=== PATIENT | female | born 1970 ===

== ENCOUNTER 2021-12-09 12:20 | Outpatient (REF) | payer OTHER, SELFPAY ==
[2021-12-09 13:22] LABS: MANUAL DIFF FLAG NO
[2021-12-09 13:25] LABS: Basophils Absolute Auto 0.1 X10*3/uL (0.0-0.2); Eosinophils Percent Auto 0.6 % (0-4); Hematocrit 43.3 % (37.0-47.0); Hemoglobin 14.8 g/dl (12.0-16.0); Imm Gran Abs Auto 0.01 X10*3/uL (0.00-0.03); Imm Gran Pct Auto 0.2 % (0.0-0.4); Lymphocytes Absolute Auto 1.8 X10*3/uL (1.2-4.9); Lymphocytes Percent Auto 36.1 % (20-40); Mean Corpuscular HGB Conc 34.2 g/dl (31.0-35.0); Mean Corpuscular Hemoglobin 31.9 pg (27.0-33.0); Mean Corpuscular Volume 93.3 fL (80.0-98.0); Mean Platelet Volume 10.7 fL (9.4-12.3); Monocytes Absolute Auto 0.6 X10*3/uL (0.1-1.2); Monocytes Percent Auto 10.9 % (2-11); Neutrophils Absolute Auto 2.6 x10*3/uL (2.0-8.3); Neutrophils Percent Auto 51.2 % (45-73); Platelet Count 338 X10*3/uL (160-400); Red Blood Count 4.64 X10*6/uL (4.20-5.50); Red Cell Distribution Width 11.7 % (11.0-16.0)
[2021-12-09 13:41] LABS: Alanine Aminotransferase 27 U/L (0-31); Alkaline Phosphatase 69 U/L (39-117); Aspartate Amino Transferase 29 U/L (5-31); Bilirubin Direct 0.3 mg/dL (0.0-0.5); Bilirubin Total 0.7 mg/dL (0.0-1.0); Iron 155 mcg/dL (30-160); Lipase 51 U/L (8-78); Percent Iron Saturation 50 % (15-50); Total Iron Binding Capacity 312 mcg/dL (228-428); Unsaturated Iron Binding 157 ug/dL
[2021-12-09 13:54] LABS: Ferritin 326 ng/mL (10-250)
[2021-12-09 14:10] LABS: Vitamin B12 559 pg/mL (200-900)
== END 2021-12-09 12:21 | disposition home or self-care (01) ==
LOC: HO.10HDL 12:20
PROVIDERS: Visit Provider Internal Medicine Gastroenterology
DX: Z13.818 Encounter for screening for other digestive system disorders (principal)
CPT/HCPCS: 36415; 80076; 82306; 82607; 82728; 83540; 83690; 85025

== ENCOUNTER 2022-01-07 08:55 | Day surgery (SDC) | payer OTHER, SELFPAY ==
[2022-01-06 11:24] VITALS: BMI 18.3
--- NOTE | 2022-01-06 11:59 | P.CONAN_ITS ---
HPI - Anesthesia Eval Consult details Narrative: 51yo F for Upper Endoscopy and Colonoscopy [facility] Past Medical History Medical History (Updated 01/06/22 @ 11:20 by Angela Gill, RN) Allergic rhinitis Celiac disease GERD (gastroesophageal reflux disease) Mood disorder Ocular rosacea Surgical History Surgical History (Updated 01/06/22 @ 11:21 by Angela Gill, RN) Hx of appendectomy Hx of breast augmentation Social History Social History Patient Tobacco Use Status: Never used Tobacco Use of substances other than those prescribed or required for medical reasons: No Substance Use Frequency: Daily Are you DNR?: No Advance Directives: No Advance Directives Information Provided: Yes Meds Allergies Allergy/AdvReac Type Severity Reaction Status Date / Time Sulfa (Sulfonamide Allergy Unknown Verified 01/06/22 11:22 Antibiotics) sulfamethoxazole Allergy Unknown Verified 01/06/22 11:22 [From Bactrim] trimethoprim [From Bactrim] Allergy Unknown Verified 01/06/22 11:22 Home Medications Medication Instructions Recorded Confirmed Last Taken Type albuterol sulfate 90 mcg/actuation 2 puff PO Q4H PRN 01/06/22 01/06/22 Unknown History aerosol inhaler (ProAir HFA) cyclosporine 0.09 % eye drops in a 1 drp OPHTHALMIC (EYE) BID 01/06/22 01/06/22 Unknown History dropperette (Cequa) famotidine 20 mg tablet 1 tab PO BEDTIME PRN 01/06/22 01/06/22 Unknown History fluticasone propionate 50 1 spray INTRANASAL BID 01/06/22 01/06/22 Unknown History mcg/actuation nasal spray,suspension lifitegrast 5 % eye drops in a 1 drp OPHTHALMIC (EYE) BID 01/06/22 01/06/22 Unknown History dropperette (Xiidra) loteprednol etabonate 0.5 % eye 1 drp OPHTHALMIC (EYE) BID 01/06/22 01/06/22 Unknown History gel drops metronidazole 0.75 % topical cream appl TOPICAL BID 01/06/22 01/06/22 Unknown History Exam Exam Date and Time: January 06, 2022 1159 Height,Weight and Vital Signs: Height 5 ft 4 in Weight 48.534 kg Pertinent Lab Results Pertinent Lab Results: Laboratory Tests 12/09/21 12:30 WBC 5.0 Hgb 14.8 Hct 43.3 Plt Count 338 Assessment and Plan Assessment Anesthesia Assessment: Chart Reviewed
[2022-01-07 09:08] VITALS: BP 103/63; PULSE 76; RESP 18; TEMP 36.9; O2SAT 99
--- NOTE | 2022-01-07 09:20 | ECG_ITS ---
Test Reason : arrhythmia Blood Pressure : / mmHG Vent. Rate : 062 BPM Atrial Rate : 062 BPM P-R Int : 132 ms QRS Dur : 080 ms QT Int : 422 ms P-R-T Axes : 086 033 043 degrees QTc Int : 428 ms Normal sinus rhythm with sinus arrhythmia Normal ECG No previous ECGs available Referred By: Nathalie Weber Electronically Signed By:KAI MENDIOLA MD
[2022-01-07] MEDS: Lactated Ringers 1,000 ML 100 ML IVCONT (09:28)
--- NOTE | 2022-01-07 09:29 | HO.ANESPROP2 ---
[facility] Past Medical History Medical History (Updated 01/06/22 @ 11:20 by Angela Gill RN) Allergic rhinitis Celiac disease GERD (gastroesophageal reflux disease) Mood disorder Ocular rosacea Family History Family history of problems with anesthesia: No Surgical History Surgical History (Updated 01/06/22 @ 11:21 by Angela Gill RN) Hx of appendectomy Hx of breast augmentation History of Problems with Anesthesia: No Social History Social History Patient Tobacco Use Status: Never used Tobacco Use of substances other than those prescribed or required for medical reasons: No Substance Use Frequency: Daily Are you DNR?: No Advance Directives: No Advance Directives Information Provided: Yes Meds Allergies Allergy/AdvReac Type Severity Reaction Status Date / Time Sulfa (Sulfonamide Allergy Unknown Verified 01/06/22 11:22 Antibiotics) sulfamethoxazole Allergy Unknown Verified 01/06/22 11:22 [From Bactrim] trimethoprim [From Bactrim] Allergy Unknown Verified 01/06/22 11:22 Active Medications: Current Medications Lactated Ringer's (Lr) 1,000 mls @ 100 mls/hr IVCONT .Q10H MO Last Admin: 01/07/22 09:28 Dose: 100 mls/hr Documented by: Home Medications Medication Instructions Recorded Confirmed Last Taken Type albuterol sulfate 90 mcg/actuation 2 puff PO Q4H PRN 01/06/22 01/06/22 Unknown History aerosol inhaler (ProAir HFA) cyclosporine 0.09 % eye drops in a 1 drp OPHTHALMIC (EYE) BID 01/06/22 01/06/22 Unknown History dropperette (Cequa) famotidine 20 mg tablet 1 tab PO BEDTIME PRN 01/06/22 01/06/22 Unknown History fluticasone propionate 50 1 spray INTRANASAL BID 01/06/22 01/06/22 Unknown History mcg/actuation nasal spray,suspension lifitegrast 5 % eye drops in a 1 drp OPHTHALMIC (EYE) BID 01/06/22 01/06/22 Unknown History dropperette (Xiidra) loteprednol etabonate 0.5 % eye 1 drp OPHTHALMIC (EYE) BID 01/06/22 01/06/22 Unknown History gel drops metronidazole 0.75 % topical cream appl TOPICAL BID 01/06/22 01/06/22 Unknown History Exam Exam Date and Time: January 07, 2022 0929 Height,Weight and Vital Signs: Height 5 ft 4 in Weight 48.534 kg Last Vital Signs Temp 98.4 F 01/07/22 09:08 Pulse 76 01/07/22 09:08 Resp 18 01/07/22 09:08 BP 103/63 01/07/22 09:08 Pulse Ox 99 01/07/22 09:08 Airway Mallampati Class: II TM Dist: >3cm Neck ROM: Full Assessment and Plan Assessment Anesthesia Assessment: Anesthesia Plan Discussed, Smoking Cess. Discussed and Chart Reviewed Final Anesthetic Review Family History of Problems with Anesthesia: No History of Problems with Anesthesia: No NPO: Yes ASA Class: II Final Preanesthetic Review: No Changes in Pt Med Stat, Meds/Allgs Chart Reviewed, Consent Obtained/Reviewed and Anes Risks/Benef Reviewed Patient Risk: Intermediate Procedure Risk: Low Anesthetic Plan Anesthetic Plan: MAC: Disposition: Standard PACU
--- NOTE | 2022-01-07 11:07 | MHC.SHP ---
Pre-Procedural Eval Section A Date of Service: 01/07/22 The patient is an INPATIENT: No Changes since office visit: No Cold of Flu in the past 2 weeks, No New Medical Problems, No Changes in Medication and No Patient answered all questions The History & Physical has been completed within 30 days and I have reviewed it.: Yes Section B Chief Complaint: screening,reflux,celiac Allergies: Allergies Allergy/AdvReac Type Severity Reaction Status Date / Time Sulfa (Sulfonamide Allergy Unknown Verified 01/06/22 11:22 Antibiotics) sulfamethoxazole Allergy Unknown Verified 01/06/22 11:22 [From Bactrim] trimethoprim [From Bactrim] Allergy Unknown Verified 01/06/22 11:22 Plan I have reviewed the history and physical and performed a pertinent physical examination on my patient. No changes have occurred unless specified.
--- NOTE | 2022-01-07 11:40 | PM.OP ---
Brief Operative Note Date of Service: 01/07/22 Pre-op diagnosis: gerd,celiac disease, screening Post-op diagnosis: same Procedure: egd, colonoscopy Surgeon: Benny Jaimes Anesthesia: MAC Was an Photo Finish Photographer used for this Procedure?: No Estimated blood loss (mL): 5 Pathology: other (lawrence req) Condition: stable Disposition: PACU
[2022-01-07 11:41] VITALS: BP 80/40; PULSE 76; RESP 16; TEMP 36.4; O2SAT 98
[2022-01-07 11:56] VITALS: BP 80/38; PULSE 67; RESP 17; O2SAT 98
[2022-01-07 12:20] VITALS: BP 108/65; PULSE 68; RESP 18; TEMP 36.3; O2SAT 99
--- NOTE | 2022-01-07 23:10 | OP_ITS ---
SURGEON: Benny Jaimes MD INDICATIONS: Gastroesophageal reflux disease, celiac disease and colon cancer screening. PREOPERATIVE DIAGNOSIS: POSTOPERATIVE DIAGNOSIS: PROCEDURE PERFORMED: Upper endoscopy with biopsy, colonoscopy to the terminal ileum. ESTIMATED BLOOD LOSS: COMPLICATIONS: ANESTHESIA: ASSISTANTS: SPECIMENS: MEDICATIONS: Monitored anesthesia care. DESCRIPTION OF PROCEDURE: History and physical were performed. The risks and benefits of the procedure were explained to the patient. Informed consent was obtained. The patient was placed in the left lateral decubitus position. A digital rectal exam was performed prior to the colonoscopy. First the Olympus video gastroscope was introduced into the esophagus, stomach, and duodenum. Examination was performed and the scope was removed. She tolerated the procedure well and was repositioned for colonoscopy. A digital rectal exam was performed and the Olympus pediatric video colonoscope was introduced into the rectum and advanced to the cecum without difficulty. The cecum was identified by transillumination, palpation, and identification of ileocecal valve. Examination was performed and the scope was removed. She tolerated the procedure well and was returned to recovery area in stable condition. FINDINGS: UPPER ENDOSCOPY: Esophagus: The esophagus was normal. There was no evidence of reflux changes. Biopsies were obtained from the EG junction. Stomach: The stomach showed no evidence of masses, ulcers, or polyps. Antral biopsies were obtained to rule out H pylori. Duodenum: There was some mild possible fold flattening in the duodenum. Biopsies were obtained to evaluate for celiac disease. COLONOSCOPY: The terminal ileum was normal. The visualized colonic mucosa was within normal limits without evidence of masses, ulcers, or polyps. The quality of prep was good. There were some hypertrophic anal papillae and some small internal hemorrhoids present. IMPRESSION: 1. Gastroesophageal reflux disease. 2. Celiac disease. 3. Normal colonoscopy. RECOMMENDATION: 1. Follow up the biopsy results. 2. Colon cancer screening is recommended every 10 years for average risk individuals. MD JEN Boggs/VALERIOL / [id number]
== END 2022-01-07 12:46 | disposition home or self-care (01) ==
PROVIDERS: PCP Internal Medicine; Visit Provider Internal Medicine Gastroenterology
PROC: (CPT 45378; principal; 2022-01-07 10:10)
DX: Z12.11 Encounter for screening for malignant neoplasm of colon (principal); Z80.0 Family history of malignant neoplasm of digestive organs; K62.89 Other specified diseases of anus and rectum; K64.8 Other hemorrhoids; K21.9 Gastro-esophageal reflux disease without esophagitis; K90.0 Celiac disease; J30.9 Allergic rhinitis, unspecified; H10.829 Rosacea conjunctivitis, unspecified eye; F39 Unspecified mood [affective] disorder; Z79.899 Other long term (current) drug therapy; Z79.51 Long term (current) use of inhaled steroids; Z88.2 Allergy status to sulfonamides
CPT/HCPCS: 45378; 43239; 88305; 88342; 93005

== ENCOUNTER 2024-01-19 08:50 | Day surgery (SDC) | payer OTHER, SELFPAY ==
--- NOTE | 2024-01-15 14:45 | HO.ANESPROP2 ---
Documented by User: Earline Meyer NP 01/15/24 14:45 HPI - Anesthesia Eval Consult details Narrative: 53yo F for Upper Endoscopy [facility] Past Medical History Medical History Allergic rhinitis Mood disorder Ocular rosacea Celiac disease GERD (gastroesophageal reflux disease) Family History Family history of problems with anesthesia: No Surgical History Surgical History H/O colonoscopy History of esophagogastroduodenoscopy (EGD) Hx of breast augmentation Hx of appendectomy History of Problems with Anesthesia: No Social History Social History Patient Tobacco Use Status: Never used Tobacco Substance Use Frequency: Occasionally Are you DNR?: No Advance Directives: No Advance Directives Information Provided: Yes Nutrition Risks: No Nutritional Risk Meds Allergies Allergy/AdvReac Type Severity Reaction Status Date / Time Sulfa (Sulfonamide Allergy Unknown Verified 01/19/24 09:21 Antibiotics) sulfamethoxazole Allergy Unknown Verified 01/19/24 09:21 [From Bactrim] trimethoprim [From Bactrim] Allergy Unknown Verified 01/19/24 09:21 Home Medications ?Medication ?Instructions ?Recorded ?Confirmed ?Last Taken ?Type albuterol sulfate 90 mcg/actuation 2 puff PO Q4H PRN dyspnea 01/06/22 01/18/24 Unknown History aerosol inhaler (ProAir HFA) cyclosporine 0.09 % eye drops in a 1 drp ophthalmic (eye) BID 01/06/22 01/18/24 Unknown History dropperette (Cequa) famotidine 20 mg tablet 1 tab PO BID PRN Acid Reflux 01/06/22 01/18/24 Unknown History fluticasone propionate 50 1 spray intranasal BID allergies 01/06/22 01/18/24 Unknown History mcg/actuation nasal spray,suspension lifitegrast 5 % eye drops in a 1 drp ophthalmic (eye) BID 01/06/22 01/18/24 Unknown History dropperette (Xiidra) loteprednol etabonate 0.5 % eye 1 drp ophthalmic (eye) QID 01/06/22 01/18/24 Unknown History gel drops metronidazole 0.75 % topical cream 1 appl topical BID 01/06/22 01/18/24 Unknown History loratadine 10 mg tablet 10 mg PO DAILY 01/18/24 01/18/24 01/19/24 History Assessment and Plan Assessment Anesthesia Assessment: Chart Reviewed Final Anesthetic Review Family History of Problems with Anesthesia: No History of Problems with Anesthesia: No Documented by User: Yennifer Valdovinos MD 01/19/24 10:29 [facility] Past Medical History Medical History Allergic rhinitis Mood disorder Ocular rosacea Celiac disease GERD (gastroesophageal reflux disease) Surgical History Surgical History H/O colonoscopy History of esophagogastroduodenoscopy (EGD) Hx of breast augmentation Hx of appendectomy Social History Social History Patient Tobacco Use Status: Never used Tobacco Substance Use Frequency: Occasionally Are you DNR?: No Advance Directives: No Advance Directives Information Provided: Yes Nutrition Risks: No Nutritional Risk Meds Allergies Allergy/AdvReac Type Severity Reaction Status Date / Time Sulfa (Sulfonamide Allergy Unknown Verified 01/19/24 09:21 Antibiotics) sulfamethoxazole Allergy Unknown Verified 01/19/24 09:21 [From Bactrim] trimethoprim [From Bactrim] Allergy Unknown Verified 01/19/24 09:21 Home Medications ?Medication ?Instructions ?Recorded ?Confirmed ?Last Taken ?Type albuterol sulfate 90 mcg/actuation 2 puff PO Q4H PRN dyspnea 01/06/22 01/18/24 Unknown History aerosol inhaler (ProAir HFA) cyclosporine 0.09 % eye drops in a 1 drp ophthalmic (eye) BID 01/06/22 01/18/24 Unknown History dropperette (Cequa) famotidine 20 mg tablet 1 tab PO BID PRN Acid Reflux 01/06/22 01/18/24 Unknown History fluticasone propionate 50 1 spray intranasal BID allergies 01/06/22 01/18/24 Unknown History mcg/actuation nasal spray,suspension lifitegrast 5 % eye drops in a 1 drp ophthalmic (eye) BID 01/06/22 01/18/24 Unknown History dropperette (Xiidra) loteprednol etabonate 0.5 % eye 1 drp ophthalmic (eye) QID 01/06/22 01/18/24 Unknown History gel drops metronidazole 0.75 % topical cream 1 appl topical BID 01/06/22 01/18/24 Unknown History loratadine 10 mg tablet 10 mg PO DAILY 01/18/24 01/18/24 01/19/24 History Exam Airway Mallampati Class: II TM Dist: >3cm Neck ROM: Full Loose/Missing/Broken Teeth: No Heart: RRR Lungs: CTA Assessment and Plan Assessment Anesthesia Assessment: Anesthesia Plan Discussed Final Anesthetic Review NPO: Yes ASA Class: II Final Preanesthetic Review: Meds/Allgs Chart Reviewed, Consent Obtained/Reviewed and Anes Risks/Benef Reviewed Patient Risk: Low Procedure Risk: Intermediate Anesthetic Plan Anesthetic Plan: MAC: Disposition: Standard PACU
[2024-01-18 06:39] VITALS: BMI 19.9
[2024-01-19 09:07] VITALS: BMI 19.9
[2024-01-19] MEDS: Lactated Ringers 1,000 ML 100 ML IVCONT (09:12)
[2024-01-19 09:19] VITALS: BP 107/60; PULSE 57; RESP 18; TEMP 36.7; O2SAT 100
--- NOTE | 2024-01-19 10:08 | MHC.SHP ---
Pre-Procedural Eval Section A - 24 Hr Update-Section A only Date of Service: 01/19/24 Section B - Complete if H&P > 30 days Chief Complaint: Gastro-esophageal reflux disease without esophagit Details of Present Illness: see H&P no changes Relevant Family History (Specify if Yes): No Relevant Social History: None Present Medications: see Short Stay Collaborative assessment Medical History: No relevant PMH History of Previous Operations: No relevant previous surgery Allergies: Allergies Allergy/AdvReac Type Severity Reaction Status Date / Time Sulfa (Sulfonamide Allergy Unknown Verified 01/19/24 09:21 Antibiotics) sulfamethoxazole Allergy Unknown Verified 01/19/24 09:21 [From Bactrim] trimethoprim [From Bactrim] Allergy Unknown Verified 01/19/24 09:21 Review of Systems Sugical H&P ROS: Negative: Constitution, Cardiovascular, Respiratory, Neurological, Psychiatric, Hem-Onc, Allergic/Immunologic, Gastrointestinal, Genitourinary, Musculoskeletal, Integumentary, Endocrine and Eyes/Ears/Nose/Throat Exam Surgical H&P Exam: Normal: HEENT, Normal: Heart, Normal: Lungs, Normal: Extremities, Normal: Abdomen, Normal: Skin and Normal: Neurological Plan Diagnosis/Plan: Unchanged I have reviewed the history and physical and performed a pertinent physical examination on my patient. No changes have occurred unless specified. Time Spent With Patient Time: Total time managing care of this patient today ____ minutes.
[2024-01-19 10:35] VITALS: BP 90/51; PULSE 63; RESP 18; TEMP 36.2; O2SAT 97
[2024-01-19 10:50] VITALS: BP 101/66; PULSE 66; RESP 16; TEMP 36.6; O2SAT 99
--- NOTE | 2024-01-19 10:54 | OP_ITS ---
DATE OF SERVICE: 01/19/2024 SURGEON: Benny Jaimes MD INDICATIONS: Gastroesophageal reflux disease. PREOPERATIVE DIAGNOSIS: POSTOPERATIVE DIAGNOSIS: PROCEDURE PERFORMED: Upper endoscopy with biopsy. ESTIMATED BLOOD LOSS: COMPLICATIONS: ANESTHESIA: Monitored anesthesia care. ASSISTANTS: SPECIMENS: DESCRIPTION OF PROCEDURE: A history and physical was performed. The risks and benefits of the procedure were explained to the patient and informed consent was obtained. The patient was placed in the left lateral decubitus position. The Olympus video gastroscope was introduced into the esophagus, stomach, and duodenum. Examination was performed and the scope was removed. She tolerated the procedure well and was returned to recovery area in stable condition. FINDINGS: Esophagus: The esophagus was normal. There was no esophagitis. Biopsies were obtained from the EG junction. Stomach: The stomach showed no evidence of masses, ulcers, or polyps. Antral biopsies were obtained to evaluate for H pylori. Duodenum: The bulb and 2nd portion were normal. Second portion biopsies were obtained. IMPRESSION: Gastroesophageal reflux disease. RECOMMENDATION: Follow up the biopsy results. MD JEN Boggs/MODL / [id number]
== END 2024-01-19 11:15 | disposition home or self-care (01) ==
PROVIDERS: PCP Internal Medicine; Visit Provider Internal Medicine Gastroenterology
PROC: 0DJ08ZZ Inspection of Upper Intestinal Tract, Via Natural or Artificial Opening Endoscopic (ICD-10-PCS; CPT 43235; principal; 2024-01-19 10:50)
DX: K21.9 Gastro-esophageal reflux disease without esophagitis (principal)
CPT/HCPCS: 43239; 88305; 88313; 88342; J2704

== ENCOUNTER 2025-01-16 10:08 | Outpatient (REF) | payer OTHER, SELFPAY ==
--- OUTSIDE RECORDS SUMMARY | 2025-01-16 10:41 | XMS_ITS | Data Portability ---
Author Organization [place] - [facility], Allergy Address [address] [facility] [address] [place] [address] Care Team Providers Care Mailroom Courier Name Role Phone AVRIL WELDON Primary Care Provider [phone] Assessment No assessment recorded. Plan of Treatment Reminders Order Date Submit Date Provider Last Modified By Organization Details Last Modified Time Details Appointments Establish ed 15 2024 09:45A M GRECIA MCMAHAN MD Not available Not available Not available Lab None recorded. Referral speech therapy referral 2024 025 [email or web address] Evangelina Crandall [place], [address], [address], [place], [address], 12/08/2024 08:17:56 Procedures None recorded. Surgeries None recorded. Imaging None recorded. Medication Orders None recorded. Patient TargetsNo targets recorded. Patient InstructionsNo instructions recorded. Reason for Referral Referring Physician: Grecia Mcmahan, Otolaryngology, Encounter Date: 11/04/2024 Problems Name Problem SNOMED Code Status Onset Date Resolution Date Notes Provider Name and Address Organization Details Recorded Time Gastroeso phageal reflux disease without esophagit is 845195971 Active 2020 Gastro-es ophageal reflux disease without esophagit is; Note: Date Diagnosed : 06/03/2021 12:10 PM (K21.9) Not Available [facility] 02[facility]47 Dysphonia 79119002 Active 2020 Hoarsenes s; Note: Date Diagnosed : 06/03/2021 12:10 PM (R49.0) Not Available [facility] 08/[facility] 4 02:58:45 Allergic rhinitis caused by pollen 77515464 Active 2020 Allergic rhinitis due to pollen; Note: Date Diagnosed : 06/03/2021 12:10 PM (J30.1) Not Available [facility] 4 02:58:45 Chronic hoarsenes s 12147832881 05 Active 2024 GRECIA MCMAHAN MD [address] [facility],[place] [address], [place], [address] , [facility] 5 10:31:54 Problem Notes None recorded. Procedures Surgical History Date Name Laterality Status Provider Name and Address Organization Details Recorded Time 11/05/19 25 Fiberoptic Laryngoscopy (Comprehensive) completed GRECIA MCMAHAN MD [address] [facility],[place] [address], [place], [address], [facility] 11/04/2024 12:38:57 Imaging Results None recorded. Procedure Notes None recorded. Medical Equipment None Reported. Allergies Allergen ID Allergen Name Allergen Category Reaction Reaction Severity Criticality Documentation Date Start Date Code Code System Note Provider Name and Address Organization Details Recorded Time 625736 Bactrim medicatio n hives Not available Not available 01/12/2024 24337 9 RxNorm React ion: skin rashe s, hives ;; Not Available [facility] 4 01:08:49 074856 Substance with sulfonami de structure and antibacte rial mechanism of action (substanc e) medicatio n itching Not available Not available 01/12/2024 48584 8003 SNOMED React ion: itchi ng; Not Available [facility] 4 01:08:50 Medications Name Sig Start Date Stop Date Status Note LastModified by Organization Details LastModified Time calcium carbonate (bulk) powder 11/04 completed Medicati on ID: [id number] B rand Name: calcium carbonat e (bulk) S end Method: E-Prescr ibed Sub s Allowed: subs OK Medic ationGen ericName : calcium carbonat e (bulk) Not Available Not Available Not Available gentamici n 0.3 % eye drops TAKE 1 DROP (OPHTHAL CLEO (EYE)) 4 TIMES PER DAY FOR 7 DAYS USE IN LEFT EYE active Not Available Not Available No t Available tacrolimu s 0.03 % topical ointment APPLY 1/4 INCH TO AFFECTED AREA TWICE A DAY active Not Available Not Available No t Available metronida zole 0.75 % topical cream active Medicati on ID: [id number] B rand Name: metronid azole Se nd Method: E-Prescr ibed Sub s Allowed: subs OK Medic ationGen ericName : metronid azole Not Available Not Available Not Available estradiol 0.5 mg tablet TAKE 1 TABLET BY MOUTH EVERY DAY active Not Available Not Available No t Available estradiol 0.01% (0.1 mg/gram) vaginal cream PLACE 1G NIGHTLY VAGINALL Y FOR TWO WEEKS AND THEN DECREASE TO TWICE A WEEK FOR MAINTANE NCE active Not Available Not Available No t Available fluticaso ne propionat e 50 mcg/actua tion nasal spray,dayron pension USE 1 SPRAY INTO EACH NOSTRIL TWICE A DAY active Not Available Not Available No t Available loratadin e 10 mg tablet TAKE 1 TABLET BY MOUTH EVERY DAY active Not Available Not Available No t Available Lotemax 0.5 % eye drops,dayron pension INSTILL 1 DROP INTO BOTH EYES TWICE A DAY 11/04 completed Not Available Not Available Not Available progester one micronize d 100 mg capsule TAKE 1 TABLET EVERY DAY WHILE ON ESTROGEN (HRT) active Not Available Not Available No t Available Restasis 0.05 % eye drops in a dropperet te active Medicati on ID: [id number] B rand Name: Restasis Send Method: E-Prescr ibed Sub s Allowed: subs OK Medic ationGen ericName : Restasis Not Available Not Available Not Available Dexilant 30 mg capsule, delayed release TAKE 1 CAPSULE BY MOUTH EVERY DAY FOR 30 DAYS 90 DAYS active Not Available Not Available No t Available Lotemax 0.5 % eye gel drops INSTILL 1 DROP INTO BOTH EYES TWICE A DAY active Not Available Not Available No t Available Xiidra 5 % eye drops in a dropperet te INSTILL 1 DROP INTO BOTH EYES TWICE A DAY active Not Available Not Available No t Available Cequa 0.09 % eye drops in a dropperet te INSTILL 1 DROP INTO BOTH EYES TWICE A DAY active Not Available Not Available No t Available Vitals Date Recorded Body height Body mass index (BMI) Body weight Provider Name and Address Organization Details Last Updated DateTime 11/04/2024 162.56 cm 19.2 kg/m2 53799.35 g Franchesca Caldera [place] - [facility] 11/04/2024 10:19:03 Social History None recorded. Functional Status None recorded. Mental Status None recorded. Family History Nothing Reported. Medical History No medical history recorded. Gynecological HistoryNo gynecological history recorded. Obstetrics History GPAL:G 0 P 0 0 0 0 Past Encounters Encounter ID Performer Location Encounter Start Date Encounter Closed Date Diagnosis/Indication Diagnosis SNOMED-CT Code Diagnosis ICD10 Code Diagnosis Note [id number] GRECIA MCMAHAN MD [facility] [address] [place] [address] 11/04/2024 10:13:15 11/04/2024 10:35:56 Chronic hoarseness 8453868849 105 R49.0 She did not hear about referral for voice therapy after her last visit. I sent out a new referral. Gastroesop hageal reflux disease without esophagitis 069530867 K21.9 She continues to have evidence of reflux on exam despite PPI. I recommende d alginate therapy. Health Concerns Section Related Observation LastModified by Organization Detai ls LastModified Time None Recorded Concern Status LastModified by Organization Details LastModified Time None Recorded Advance Directives Directive None Recorded Payers Insurance Date Sequence Insurance Name Policy Number Policy Arcos Covered Member ID Arcos Member ID Guarantor Name 11/04/2024 1 [facility] (MEDICAID HMO) [id number] Marylu Bond n [id number] Marylu Puente Notes Date Note Type Note Provider Name and Address Organization Details Recorded Time 11/04/2024 text/html Reflux and aller gies seem to be under control. Dexilant seems to be helping. PV: Followup for voice, reflux and allergies.BID pepcid did not help. Saw her GI and was started on dexilant which is helping significantly. Unfortunately her voice is no better, especially withsinging.For her allergies, is taking flonase and loratidine which are helping with nasal symptoms. Flexible fiber-optic laryngoscopy was repeated today with findings similar to last visit. There is postcricoid edema,interarytenoid bar and pseudo-sulcus of bilateral vocal folds consistent with laryngopharyngeal reflux.There is likely a component of muscle tension in addition to LPR. She has done well with voice therapy in the past. I think that she would benefit from reevaluationwith speech language therapy. Will send referral. GRECIA MCMAHAN MD [address] [place] [address], [phone], [facility] - [facility] 11/04/2024 12:40:17 OBGyn Episode No OBEpisode recorded.
--- OUTSIDE RECORDS SUMMARY | 2025-01-16 10:41 | XMS_ITS | Patient Health Record ---
Author Organization [facility] Address [address] [place] [address] Care Team Providers Care Alarm Field Technician Name Role Phone Luther Rose Primary Care Provider Benny Acevedo Jr Allergies Allergen (clinical drug ingredient) Drug/Non Drug Allergy documented on EMR Reaction Allergy Type Onset Date Status Substance with sulfonamide structure and antibacterial mechanism of action (substance) Sulfa Antibiotics Unknown Drug Allergy A ctive sulfamethoxazole / trimethoprim Bactrim Unknown Drug Allergy Active Results Component Value Reference Range Notes Pathology Reviewed date:02/04/2024 11:08:04 AM Interpretation: Performing Lab:[facility], [address] [place] [address] Notes/Report: Name: Karolina Puente Age/Sex: 53/F : 1970 Unit#: [id number] Attend Dr: Benny Jaimes MD Re01/19/24 Status : [facility] Location: [facility] Disch: SPEC : [id number] RECD : 01/19/24 STATUS: [facility] NUM: [id number] AGNIESZKA: 01/19/24-1026 [facility] DR: Benny Jaimes MD ENTERED: 01/19/24-11 48 SP TYPE: Surgical OTHR DR: Myra Gonzalez MD ORDERED: HE Stain/9, Gross Micro L4/3, IHC, Special st. 2/3, H. pylori, AB/PAS/3 Diagnosis A. Duodenum, biopsy: Duodenal mucosa with preserved villi and no specific change. B. Gastric antrum, b iopsy: Gastric antral mucosa with focal minimal chronic inactive inflammation; negati ve for H pylori, intestinal metaplasia and dysplasia. C. Gastroesophageal junction, biopsy: Squamous mucosa with hyperplasia, mild spongiosis, and rare intraepithelial neutrophils consistent with reflux esophagitis, and columnar mucosa with mild chronic inflammation; negative for intestinal metaplasia and dysplasia. Clinical History Pre-Op Dx: Gastroeso phageal reflux disease without esophagitis Post-Op Dx: GERD Microscopic Description Microscopic sections reviewed. Immunostain for H. pylori on B is negative. AB/PAS on A is negative for evidenc e of chronic injury. AB/PAS on B and C are negative for intestinal metaplasia. Controls stain appropriately. Material Received A. Duodenum bx's B. Antrum bx's C. GE junction bx's Gross Description Received in three parts. Part A: Received in formalin labeled ?duodenum bx's? are 2 puentes-pink irregular tissue fragments each measu ring 0.3 cm, submitted in toto in a cassette labeled A. Part B: Received in formalin labeled ?antrum bx's? are 3 puentes-pink irregular and rectangular tissue fragments ran ging from 0.15-0.5 cm, submitted in toto in a cassette labeled B. Part C: Received in formalin labeled ?GE junction bx's? are 4 puentes-pink irregular and rectangular tissue f ragments ranging from 0.25-0.4 cm, submitted in toto in a cassette labeled C. CEDS CONTINUED ON NEXT PAGE Name: Karolina Puente Age/Sex: 53/F : 1970 Unit#: [id number] Attend Dr: Benny Jaimes MD Re01/19/24 Status : [facility] Location: [facility] Disch: SPEC : [id number] RECD : 01/19/24 STATUS: [facility] NUM: [id number] AGNIESZKA: 01/19/24-6 [facility] DR: Benny Jaimes MD ENTERED: 01/19/24- 48 SP TYPE: Surgical OTHR DR: Myra Gonzalez MD ORDERED: HE Stain/9, Gross Micro L4/3, IHC, Special st. 2/3, H. pylori, AB/PAS/3 Gross Description (Continued) Special studies orde red and performed: Immunostain for H. pylori on B1; AB/PAS stains on A1, B1 and C1. Copies To: Myra Gonzalez MD [address] [place], [place] [id number] Benny Jaimes MD [address] [place] [address] [address] [place] [id number] Signed (si gnature on file) Yamileth [place] 01/21/24 1147 END OF REPORT Reason For Referral No Information Medications Medication SIG (Take, Route, Frequency, Duration) Notes Start Date End Date Status Fluticasone Furoate 27.5 MCG/SPRAY 1 spray in each nostril Nasally Once a day for 30 day(s) Active ProAir HFA 108 (90 Base) MCG/ACT 1 puff as needed Inhalation every 4 hrs Active Cequa 0.09 % 1 drop into affected eye Ophthalmic every 12 hrs Active Lotemax 0.5 % 1 drop into affected eye Ophthalmic Four times a day for 7 day(s) Active Xiidra 5 % 1 drop into affected eye Ophthalmic Twice a day Active Estradiol 0.5 MG 1 tablet Orally Once a day Active Progesterone 100 MG 1 capsule at bedtime Orally Once a day Active Famotidine 20 MG 1 tablet at bedtime as needed Orally Once a day for 30 days 01/16/2025 Active Dexilant 30 MG TAKE 1 CAPSULE BY [facility] EVERY DAY FOR 30 DAYS for 90 Active Loratadine 10 MG TAKE 1 TABLET BY [facility] EVERY DAY Oral for 90 Active metroNIDAZOLE 0.75 % External for 30 Active Immunizations Vaccine Route Administration Date Status Comme nts Influenza Unknown 12/09/2021 Refused Influenza Unknown 12/07/2023 Refused Social History Tobacco Use: Social History Observation Description Date Details (start date - stop date) Never Smoker NA - NA Tobacco Use/Smoking Question Answer Notes Patient is a nonsmoker Alcohol Screen Question Answer Notes Did you have a drink contain ing alcohol in the past year? Yes How often did you have a dri nk containing alcohol in the past year? 2 to 3 times a week (3 points) How many drinks did you have on a typical day when you were drinking in the past year? 1 or 2 drinks (0 point) How often did you have 6 or more drinks on one occasion in the past year? Never (0 point) Points 3 Interpretation Positive Problems Problem Type SNOMED Code ICD Code Onset Dates Problem Status W/U Status Risk Notes Problem 068341374 Colon cancer screening (Z12.11) Active confirmed Problem Celiac disease (340643292) Celiac disease (K90.0) Active confirmed Problem 300918023 Gastroesophageal reflux disease without esophagitis (K21.9) Active confirmed Problem Esophageal reflux finding (550954822) Gastroesophageal reflux (K21.9) Active confirmed Problem 408071438 Celiac disease/s prue (K90.0) Active confirmed Vital Signs Temperature 97.7 degrees Fahrenheit 01/16/2025 Blood pressure diastolic 01 mm Hg 01/16/2025 Height 64 in 01/16/2025 Blood pressure systolic 001 mm Hg 01/16/2025 Weight 112 lbs 01/16/2025 BMI 19.22 kg/m2 01/16/2025 Encounters Encounter Location Date Provider Diagnosis [facility] Outpatient [address] [place] [phone] 01/19/2024 Benny Jaimes Jr Gastroesophageal reflux disease without esophagitis K21.9 [facility] [address] [place] [phone] 01/16/2025 Benny Jaimes Jr Celiac disease K90.0 ; Gastroesophageal reflux disease without esophagitis K21.9 and Colon cancer screening Z12.11 [facility] [address] [place] [phone] 02/04/2024 Benny Jaimes Jr [facility] [address] [place] [phone] 04/29/2024 Benny Jaimes Jr [facility] [address] [place] [phone] 09/06/2024 Benny Jaimes Jr Assessments Encounter Date Diagnosis (ICD Code) Assessment Notes Treatment Notes Treatment Clinical Notes Section Notes 01/19/2024 Gastroesophageal reflux disease without esophagitis (ICD-10 - K21.9) 01/16/2025 Celiac disease (ICD-10 - K90.0) We discussed he r symptoms today. We discussed celiac disease. We discussed gastroesophageal reflux disease. We discussed diet, lifestyle modifications, and weight management. She will begin using famotidine 20 mg at night in addition to the Dexilant in the morning. She will follow-up with her PCP regarding her stress issues. She is up-to-date on colorectal cancer screening. Today's visit was 30 minutes. 01/16/2025 Gastroesophageal reflux disease without esophagitis (ICD-10 - K21.9) We discussed he r symptoms today. We discussed celiac disease. We discussed gastroesophageal reflux disease. We discussed diet, lifestyle modifications, and weight management. She will begin using famotidine 20 mg at night in addition to the Dexilant in the morning. She will follow-up with her PCP regarding her stress issues. She is up-to-date on colorectal cancer screening. Today's visit was 30 minutes. 01/16/2025 Colon cancer screening (ICD-10 - Z12.11) We discussed her symptoms today. We discussed celiac disease. We discussed gastroesophageal reflux disease. We discussed diet, lifestyle modifications, and weight management. She will begin using famotidine 20 mg at night in addition to the Dexilant in the morning. She will follow-up with her PCP regarding her stress issues. She is up-to-date on colorectal cancer screening. Today's visit was 30 minutes. Plan Of Treatment Pending Test Test Name Order Date LIVER PROFILE 01/16/2025 LIPASE 01/16/2025 CBC w/o DIFF 01/16/2025 CELIAC DISEASE ANTIBODY PANEL 01/16/2025 Future Test Test Name Order Date UPPER GI ENDOSCOPY 12/09/2021 COLONOSCOPY 12/09/2021 UPPER GI ENDOSCOPY 12/07/2023 Next Appt Details Provider Name:Benny andrade , 01/17/2026 09:00:00 AM, [address] [facility], [address], [place], [address], Insurance Providers Payer Name Payer Address Payer Phone Subscriber Number Group Number Insured Name Patient Relationship to Insured Coverage Start Date Coverage End Date [facility] [address] [place] [phone] [id number] [employer] Self - patient is the insured Medical (General) History Medical History History ICD Code Ocular rosacea Celiac disease Gastroesophageal reflux dise ase, EGD 01/21 with no active celiac disease, Rod's esophagus, or H. pylori. Mood disorder Allergic rhinitis Colonoscopy 01/19, normal, ten-year follo wup. Surgical History Surgery Date(Month/Year) breast augmentation 1997 appendectomy 1999 Hospitalization History Reason Date(Month/Year)
--- OUTSIDE RECORDS SUMMARY | 2025-01-16 10:41 | XMS_ITS ---
Author Organization [facility] Address [address] [place] [address] Care Team Providers Care Rn Clinical Coordinator Name Role Phone Luther Rose Primary Care Provider Jessica Benny Lagunas Jr REASON FOR VISIT refill dexilant Encounters Encounter Location Date Provider Diagnosis [facility] [address] [place] [address] 09/06/2024 Benny Jaimes Jr Plan Of Treatment Next Appt Details Provider Name:Benny andrade Jr, 01/17/2026 09:00:00 AM, [address] [facility], [address], [place], [address], Progress Notes * ATA SIMPSON ADOB:05/1970 (54 yo F)Acc No.[id number]:09/06/2024 Patient:?ATA SIMPSON :1970???Age:54 Y???Sex:Female Address:[address] [place] [address] , [address], [place], [address] * true * Date:? Generated for Printi ng/Fakelleyg/eTransmitting on:?01/16/2025 10:41 AM EDT
--- OUTSIDE RECORDS SUMMARY | 2025-01-16 10:41 | XMS_ITS ---
Author Organization [facility] Address [address] [place] [address] Care Team Providers Care Camp Guard Name Role Phone Luther Rose Primary Care Provider Jessica Jaimes Jr, Benny Gonsalez [phone] REASON FOR VISIT dupixent Medications Medication SIG (Take, Route, Fr equency, Duration) Notes Start Date End Date Status Dexilant 30 MG TAKE 1 CAPSULE BY MO UT EVERY DAY FOR 30 DAYS for 90 days Active Encounters Encounter Location Date Provider Diagnosis [facility] [address] [facility] [address] [place] [address] 04/29/2024 Benny Jaimes Jr Plan Of Treatment Medication Medication Name Sig Start Date Stop Date Notes Dexilant 30 MG TAKE 1 CAPSULE BY MO UTH EVERY DAY FOR 30 DAYS for 90 days Next Appt Details Provider Name:Benny andrade Jr, 01/17/2026 09:00:00 AM, [address] [place] [address], [address], [place], [address], Progress Notes * ATA SIMPSON ADOB:05/1970 (54 yo F)Acc No.[id number]:04/29/2024 Patient:?ATA SIMPSON :1970???Age:54 Y???Sex:Female Address:[address] [place] [address] , [address], [place], [address] * Refills? Refill Dexilant Capsule Delayed Release, 30 MG, 90 Capsule, TAKE 1 CAPSULE BY MOUTH EVERY DAY FOR 30 DAYS, 90 days, Refills=3 * true * Date:? Generated for Enrique gillette/Asya/Mistyitting on:?01/16/2025 10:40 AM EDT
--- OUTSIDE RECORDS SUMMARY | 2025-01-16 10:41 | XMS_ITS ---
Author Organization [facility] Address [address] [place] [address] Care Team Providers Care Communication Equipment Repairer Name Role Phone Luther Rose Primary Care Provider Benny Acevedo Jr Unavailable [phone] Allergies Allergen (clinical drug ingredient) Drug/Non Drug Allergy documented on EMR Reaction Allergy Type Onset Date Status Substance with sulfonamide structure and antibacterial mechanism of action (substance) Sulfa Antibiotics Unknown Drug Allergy A ctive sulfamethoxazole / trimethoprim Bactrim Unknown Drug Allergy Active REASON FOR VISIT Patient presents today for GERD Medications Medication SIG (Take, Route, Frequency, Duration) Notes Start Date End Date Status Fluticasone Furoate 27.5 MCG/SPRAY 1 spray in each nostril Nasally Once a day for 30 day(s) Active Famotidine 20 MG 1 tablet at bedtime as needed Orally Once a day for 30 days 01/16/2025 Active Dexilant 30 MG TAKE 1 CAPSULE BY [facility] EVERY DAY FOR 30 DAYS for 90 Active Loratadine 10 MG TAKE 1 TABLET BY [facility] EVERY DAY Oral for 90 Active metroNIDAZOLE 0.75 % External for 30 Active ProAir HFA 108 (90 Base) MCG/ACT [...] at bedtime Orally Once a day Active Social History Tobacco Use: Social History Observation [...] Never (0 point) Points 3 Interpretation Positive Vital Signs Temperature 97.7 degrees Fahrenheit 01/17/20 25 Blood pressure systolic 001 mm Hg 01/17/20 25 Blood pressure diastolic 01 mm Hg 025 Height 64 in 01/16/2025 Weight 112 lbs 01/16/2025 BMI 19.22 kg/m2 01/16/2025 Encounters Encounter Location Date Provider Diagnosis [facility] [address] [place] [address] 01/16/2025 Benny Jaimes Jr Celiac disease K90.0 ; Gastroesophageal reflux disease without esophagitis K21.9 and Colon cancer screening Z12.11 Assessments Encounter Date Diagnosis (ICD Code) Assessment Notes Treatment Notes Treatment Clinical Notes Section Notes 01/16/2025 Celiac disease (ICD-10 - K90.0) We [...] visit was 30 minutes. Plan Of Treatment Medication Medication Name Sig Start Date Stop Date Notes Famotidine 20 MG 1 tablet at bedtime as needed Orally Once a day for 30 days 01/16/2025 Pending Test Test Name Order Date LIVER PROFILE 01/16/2025 LIPASE 01/16/2025 CBC w/o DIFF 01/16/2025 CELIAC DISEASE ANTIBODY PANEL 01/16/2025 Next Appt Details Follow Up: 1 Year, Reason: Provider Name:Benny andrade , 01/17/2026 09:00:00 AM, [address] [place] [address], [address], [place], [address], Progress Notes * ATA SIMPSON ADOB:05/1970 (54 yo F)Acc No.[id number]:01/16/2025 Progress Notes Patient:?ATA SIMPSON Provider:?Benny Jaimes MD :1970???Age:54 Y???Sex:Female D ate:01/16/2025 Address:[address] [place], [place] [id number] Pcp:Luther Osullivan Subjective: * Chief Complaints: * ???1. Patient presents today for GERD. * HPI: ???New symptom(s):? The patient is a pleasant 54-year-old woman seen today in follow-up of gastroesophageal reflux disease, celiac disease, and colon cancer screening. She was last seen for endoscopy in December 2023. This showed no evidence of active celiac disease, Rod's esophagus, or H. pylori. We reviewed this today. She does remain vigilant and following a gluten-free diet. Today she complains of acid symptoms which occur in the morning, with frequent bowel movements about 4-5 times in the morning which subsequently resolved. She does admit to being under significant stress, and we discussed the relationship between stress and GI issues. She is up-to-date on colorectal cancer screening. * Medical History:?Ocular sherman cea, Celiac disease, Gastroesophageal reflux disease, EGD 01/21 with no active celiac disease, Rod's esophagus, or H. pylori., Mood disorder, Allergic rhinitis, Colonoscopy 01/19, normal, ten-year followup.. * Surgical History:?appendecto my 1999, breast augmentation 1997. * Family History:?Father: dece ased, diagnosed with Colon cancer.?Mother: .? No family history of liver cancer. Fathers's mother stomach cancer. Mother's half brother and her father's mother had esophageal cancer. * Social History:?Tobacco Use:?Tobacco Use/Smoking?Patient is a?nonsmoker.?Drugs/Alcohol:?Alcohol Screen?Did you have a drink containing alcohol in the past year??Yes,?How often did you have a drink containing alcohol in the past year??2 to 3 times a week (3 points),?How many drinks did you have on a typical day when you were drinking in the past year??1 or 2 drinks (0 point),?How often did you have 6 or more drinks on one occasion in the past year??Never (0 point),?Points?3,?Interpretation?Positive.?Miscellaneous:?Marital status: single. * Medications:?Taking Progeste brook 100 MG Capsule 1 capsule at bedtime Orally Once a day , Taking Estradiol 0.5 MG Tablet 1 tablet Orally Once a day , Taking Xiidra 5 % Solution 1 drop into affected eye Ophthalmic Twice a day , Taking Lotemax 0.5 % Suspension 1 drop into affected eye Ophthalmic Four times a day , Taking Cequa 0.09 % Solution 1 drop into affected eye Ophthalmic every 12 hrs , Taking ProAir HFA 108 (90 Base) MCG/ACT Aerosol Solution 1 puff as needed Inhalation every 4 hrs , Taking Fluticasone Furoate 27.5 MCG/SPRAY Suspension 1 spray in each nostril Nasally Once a day , Taking metroNIDAZOLE 0.75 % Cream External , Taking Loratadine 10 MG Tablet TAKE 1 TABLET BY MOUTH EVERY DAY Oral , Taking Dexilant 30 MG Capsule Delayed Release TAKE 1 CAPSULE BY MOUTH EVERY DAY FOR 30 DAYS , Medication List reviewed and reconciled with the patient * Allergies:?Bactrim, Sulfa An tibiotics. Objective: * Vitals:?Wt: 112 lbs, Ht: 64 in, BMI:19.22Index, BP: 001/01 mm Hg, Temp: 97.7, Wt-k.8. * Examination: ???General Examination: ???On examination today, she appears well. Skin is anicteric. Lungs are clear. Heart shows a regular rate and rhythm. Abdomen is soft and nontender. Extremities are without edema. Assessment: * Assessment: 1.?Celiac disease - K90.0 (P rimary)???2.?Gastroesophageal reflux disease without esophagitis - K21.9???3.?Colon cancer screening - Z12.11??? We discussed her symptoms to day. We discussed celiac disease. We discussed gastroesophageal reflux disease. We discussed diet, lifestyle modifications, and weight management. She will begin using famotidine 20 mg at night in addition to the Dexilant in the morning. She will follow-up with her PCP regarding her stress issues. She is up-to-date on colorectal cancer screening. Today's visit was 30 minutes. Plan: * Treatment: 2.?Gastroesophageal reflux d isease without esophagitis? Start Famotidine Tablet, 20 MG, 1 tablet at bedtime as needed, Orally, Once a day, 30 days, 30, Refills 11.?? * Procedure Codes:?3017F COLOR ECTAL CA SCREEN DOC REV, 1036F TOBACCO NON-USER, G8785 BP SCR NOT PRFRM REC REASON NOS * Follow Up:?1 Year * * The named appointment provid er may or may not be the originator of this progress note, and it is not deemed complete until electronically signed by the appointment provider. Sign off status: Pending * Provider:?Benny Jaimes MD Date:?0 01/16/2025 Generated for Enrique gillette/Asya/Lisandro on:?01/16/2025 10:40 AM EDT History and Physical Notes * HPI (History of Present Illness) Category Sub-Category Detail Notes Category Not es New symptom(s) The patient is a pleasant 54-year-old woman seen today in follow-up of gastroesophageal reflux disease, celiac disease, and colon cancer screening. She was last seen for endoscopy in December 2023. This showed no evidence of active celiac disease, Rod's esophagus, or H. pylori. We reviewed this today. She does remain vigilant and following a gluten-free diet. Today she complains of acid symptoms which occur in the morning, with frequent bowel movements about 4-5 times in the morning which subsequently resolved. She does admit to being under significant stress, and we discussed the relationship between stress and GI issues. She is up-to-date on colorectal cancer screening. Examination Category Sub-Category Detail Notes Category Not es General Examination On exami nation today, she appears well. Skin is anicteric. Lungs are clear. Heart shows a regular rate and rhythm. Abdomen is soft and nontender. Extremities are without edema.
[2025-01-16 13:07] LABS: MANUAL DIFF FLAG NO
[2025-01-16 13:22] LABS: Basophils Absolute Auto 0.1 X10*3/uL (0.0-0.2); Eosinophils Absolute Auto 0.1 X10*3/uL (0.0-0.4); Eosinophils Percent Auto 0.7 % (0-4); Hemoglobin 12.8 g/dl (12.0-16.0); Imm Gran Abs Auto 0.01 X10*3/uL (0.00-0.03); Imm Gran Pct Auto 0.1 % (0.0-0.4); Lymphocytes Absolute Auto 1.3 X10*3/uL (1.2-4.9); Mean Corpuscular HGB Conc 33.7 g/dl (31.0-35.0); Mean Corpuscular Hemoglobin 31.8 pg (27.0-33.0); Mean Corpuscular Volume 94.3 fL (80.0-98.0); Mean Platelet Volume 10.5 fL (9.4-12.3); Monocytes Absolute Auto 0.5 X10*3/uL (0.1-1.2); Monocytes Percent Auto 6.5 % (2-11); Neutrophils Absolute Auto 5.2 x10*3/uL (2.0-8.3); Neutrophils Percent Auto 73.7 % (45-73); Platelet Count 269 X10*3/uL (160-400); Red Blood Count 4.03 X10*6/uL (4.20-5.50); Red Cell Distribution Width 12.1 % (11.0-16.0); White Blood Count 7.1 X10*3/uL (4.8-10.8)
[2025-01-16 13:37] LABS: Alanine Aminotransferase 22 U/L (0-31); Albumin Level 4.6 g/dL (3.5-5.0); Alkaline Phosphatase 54 U/L (39-117); Aspartate Amino Transferase 30 U/L (5-31); Bilirubin Direct 0.2 mg/dL (0.0-0.5); Bilirubin Total 0.7 mg/dL (0.0-1.0); Lipase 31 U/L (8-78); Total Protein 7.2 g/dL (6.5-8.0)
[2025-01-17 20:04] LABS: Immunoglobulin A 165 mg/dL (47-310); Transglutaminase IgA <1.0 U/mL
== END 2025-01-16 10:09 | disposition home or self-care (01) ==
LOC: HO.10HDL 10:08
PROVIDERS: Visit Provider Internal Medicine Gastroenterology
DX: K90.0 Celiac disease (principal)
CPT/HCPCS: 36415; 80076; 82784; 83690; 85025; 86364